=== PATIENT | female | born 1975 | race African-American/Black ===

== ENCOUNTER 2017-06-11 08:13 | Emergency (ER) | payer SELFPAY ==
--- NOTE | 2017-06-11 08:28 | ER Document Report ---
ED ENT - General Chief Complaint: Ear Pain Stated Complaint: RIGHT EAR PAIN Time Seen by Provider: 06/11/17 08:27 Mode of Arrival: Ambulatory Information source: Patient Notes: Patient is a 41-year-old female who presents to the ER today for 3 days of right ear pain. Patient states that she feels like she cannot hear very well out of it and that it feels "clogged." She denies any drainage from the ear, fever, chills, runny nose, sore throat, cough or other symptoms. TRAVEL OUTSIDE OF THE [place] IN LAST 30 DAYS: No - Related Data Allergies/Adverse Reactions: No Known Allergies Allergy (Verified 09/05/16 07:56) Past Medical History - General Information source: Patient - Social History Smoking Status: Unknown if Ever Smoked Family History: Reviewed & Not Pertinent Renal/ Medical History: Denies: Hx Peritoneal Dialysis Past Surgical History: Reports: Hx Tubal Ligation - Immunizations Immunizations up to date: Yes Hx Diphtheria, Pertussis, Tetanus Vaccination: Yes Review of Systems - Review of Systems Constitutional: No symptoms reported EENT: See HPI Cardiovascular: No symptoms reported Respiratory: No symptoms reported Gastrointestinal: No symptoms reported Genitourinary: No symptoms reported Female Genitourinary: No symptoms reported Musculoskeletal: No symptoms reported Skin: No symptoms reported Hematologic/Lymphatic: No symptoms reported Neurological/Psychological: No symptoms reported Physical Exam - Vital signs Vitals: Temp Pulse Resp BP Pulse Ox 97.9 F 70 16 135/70 H 99 06/11/17 08:14 06/11/17 08:14 06/11/17 08:14 06/11/17 08:14 06/11/17 08:14 - Notes Notes: PHYSICAL EXAMINATION: GENERAL: Well-appearing and in no acute distress. HEAD: Atraumatic, normocephalic. EYES: Pupils equal round and reactive to light, extraocular movements intact, sclera anicteric, conjunctiva are normal. ENT: Bilateral ear canals filled with wax, cannot visualize TMs, nares patent, oropharynx clear without exudates. Moist mucous membranes. NECK: Normal range of motion, supple without lymphadenopathy LUNGS: CTAB and equal. No wheezes rales or rhonchi. HEART: Regular rate and rhythm without murmurs EXTREMITIES: Normal range of motion, no pitting edema. No cyanosis. NEUROLOGICAL: Cranial nerves grossly intact. Normal sensory/motor exams. PSYCH: Normal mood, normal affect. SKIN: Warm, Dry, normal turgor, no rashes or lesions noted Course - Re-evaluation Re-evalutation: 06/11/17 10:25 Bilateral ears were irrigated, removing wax successfully. Patient still complains of pain to the right ear. After irrigation, I did visualize the ear canals again and the right ear canal is very edematous, cannot visualize TMs still. I will treat her with Ciprodex which was given to her here in the emergency department will be enough for the full course of treatment. - Vital Signs Vital signs: Temp Pulse Resp BP Pulse Ox 97.9 F 70 16 135/70 H 99 06/11/17 08:14 06/11/17 08:14 06/11/17 08:14 06/11/17 08:14 06/11/17 08:14 Discharge - Discharge Clinical Impression: Wax in ear Otitis externa of right ear Qualifiers: Otitis externa type: unspecified type Chronicity: acute Qualified Code(s): H60.501 - Unspecified acute noninfective otitis externa, right ear Condition: Stable Disposition: HOME, SELF-CARE Additional Instructions: Return immediately for any new or worsening symptoms. Follow up with primary care provider, call tomorrow to make followup appointment. Referrals: NASIMA BARRAGAN, [Primary Care Provider] - Follow up as needed
[2017-06-11] MEDS ORDERED: CIPROFLOXACIN HCL/DEXAMETH OTIC DROP 7.5 ML AS ONE (10:05)
[2017-06-11 10:51] VITALS: BP 110/50
== END 2017-06-11 10:30 | disposition home or self-care (01) ==
LOC: ER 08:13
DX: H60.501 Unspecified acute noninfective otitis externa, right ear (principal); H61.23 Impacted cerumen, bilateral; H92.01 Otalgia, right ear; Z98.51 Tubal ligation status
CPT/HCPCS: 99282; J3490

== ENCOUNTER 2017-06-12 10:55 | Emergency (ER) | payer SELFPAY ==
[2017-06-12] MEDS ORDERED: DOCUSATE SODIUM 100 MG CAPSULE BTH_EAR ONE (11:17)
--- NOTE | 2017-06-12 11:25 | ER Document Report ---
HPI - HPI Pain Level: 5 Notes: Patient is a 41-year-old female presents the ED complaining of bilateral ear pain, clogged ears, decreased hearing, and with wax buildup 4 days patient states that she was here yesterday and had received treatment but did not get any relief. They did send her home with some Ciprodex drops for the right ear canal which she has been using without any relief. Denies any recent illness. No other concerns or complaints. Denies any headache, dizziness, tinnitus, fever, URI, sore throat, cough, shortness breath, wheeze, chest pain, palpitations, abdominal pain, nausea/vomiting, dysuria, rash. Denies drug allergies. Denies any daily medications. Denies any significant past medical history. Denies any smoking or illicit drug use. - ROS Notes: REVIEW OF SYSTEMS: CONSTITUTIONAL : Denies fever, chills, or sweats. Denies recent illness. EENT: see hpi CARDIOVASCULAR: Denies chest pain. Denies palpitations or racing or irregular heart beat. Denies ankle edema. RESPIRATORY: Denies cough, cold, or chest congestion. Denies shortness of breath, difficulty breathing, or wheezing. GASTROINTESTINAL: Denies abdominal pain or distention. Denies nausea, vomiting , or diarrhea. Denies blood in vomitus, stools, or per rectum. Denies black, tarry stools. Denies constipation. GENITOURINARY: Denies difficulty urinating, painful urination, burning, frequency, blood in urine, or discharge. MUSCULOSKELETAL: Denies back or neck pain or stiffness. Denies joint pain or swelling. SKIN: Denies rash, lesions or sores. NEUROLOGICAL: Denies confusion or altered mental status. Denies passing out or loss of consciousness. Denies dizziness or lightheadedness. Denies headache. Denies weakness or paralysis or loss of use of either side. Denies problems with gait or speech. Denies sensory loss, numbness, or tingling. Denies seizures. ALL OTHER SYSTEMS REVIEWED AND NEGATIVE. Dictation was performed using [employer] voice recognition software - REPRODUCTIVE Reproductive: DENIES: : - DERM Skin Color: Normal Past Medical History - Social History Smoking Status: Never Smoker Family History: Reviewed & Not Pertinent Patient has suicidal ideation: No Patient has homicidal ideation: No Renal/ Medical History: Denies: Hx Peritoneal Dialysis Past Surgical History: Reports: Hx Tubal Ligation - Immunizations Immunizations up to date: Yes Hx Diphtheria, Pertussis, Tetanus Vaccination: Yes Vertical Provider Document - CONSTITUTIONAL Agree With Documented VS: Yes Notes: PHYSICAL EXAMINATION: GENERAL: Well-appearing, well-nourished and in no acute distress. HEAD: Atraumatic, normocephalic. EYES: Pupils equal round and reactive to light, extraocular movements intact, sclera anicteric, conjunctiva are normal. ENT: Cerumen obstruction b/l EAC. + mild swelling, tenderness to rt EAC. TM's not visualized. Nares patent and without discharge. oropharynx clear without exudates. No tonsilar hypertrophy or erythema. Moist mucous membranes. No sinus tenderness. NECK: Normal range of motion, supple without lymphadenopathy. LUNGS: Breath sounds clear to auscultation bilaterally and equal. No wheezes rales or rhonchi. HEART: Regular rate and rhythm without murmurs, rubs, gallops. PSYCH: Normal mood, normal affect. SKIN: Warm, Dry, normal turgor, no rashes or lesions noted. - INFECTION CONTROL TRAVEL OUTSIDE OF THE [place] IN LAST 30 DAYS: No - RESPIRATORY O2 Sat by Pulse Oximetry: 100 Course - Re-evaluation Re-evalutation: 06/12/17 12:32 Patient is an afebrile, well-hydrated, 41-year-old female presents the ED with cerumen impaction bilaterally and right acute otitis externa. Vitals are stable. PE otherwise unremarkable. Colace was placed in the ears bilaterally, curette was utilized along with irrigation but was unable to remove the cerumen successfully. Pt was in distress and pain. We were able to get some cerumen out, but an abundant amount remained that was solid. Spoke with Dr. Rowe ( ENT) who will see the patient this afternoon in his office. Patient directed to continue the Ciprodex drops that she was given yesterday to her right ear. Avoid Q-tips and other items in the ear. Conservative measures otherwise for symptoms. Recheck with your PCM in 2-3 days otherwise. Return to the ED with any worsening/concerning symptoms otherwise as reviewed. Patient is in agreement. Meclizine given PO for dizziness during procedure. - Vital Signs Vital signs: Temp Pulse Resp BP Pulse Ox 98.2 F 79 16 134/82 H 100 06/12/17 11:03 06/12/17 11:03 06/12/17 11:03 06/12/17 11:03 06/12/17 11:03 Discharge - Discharge Clinical Impression: Impacted cerumen of both ears Acute otitis externa of right ear Qualifiers: Otitis externa type: unspecified type Qualified Code(s): H60.501 - Unspecified acute noninfective otitis externa, right ear Condition: Stable Disposition: HOME, SELF-CARE Instructions: Otitis Externa ([facility]), Use of Ear Drops ([facility]), Acetaminophen Additional Instructions: Maintain adequate fluid intake Keep ears clean Avoid q-tips and other items in ear tylenol/ibuprofen as needed Continue ear drops as directed F/u: with your PCM in 2-3 days for a recheck Consider consult with ENT Return to the ED with any fever, worsening pain, chest pain, shortness of breath , trouble swallowing/breathing, abdominal pain, n/v/d, or worsening/concerning symptoms otherwise. Go to ENT office today for evaluation Dr. Rowe [address] [place] [address] Forms: Elevated Blood Pressure Referrals: ENT [Provider Group] - Follow up as needed
[2017-06-12] MEDS ORDERED: MECLIZINE HCL 25 MG TABLET PO ONE (12:27)
[2017-06-12 13:00] VITALS: BP 139/82
== END 2017-06-12 13:00 | disposition home or self-care (01) ==
LOC: ER 10:55
DX: H61.23 Impacted cerumen, bilateral (principal); H60.501 Unspecified acute noninfective otitis externa, right ear; R42 Dizziness and giddiness
CPT/HCPCS: 99283

== ENCOUNTER 2017-06-14 08:51 | Day surgery (SDC) | payer SELFPAY ==
[2017-06-14] MEDS ORDERED: MIDAZOLAM 2 MG/2 ML INJ ONE (10:27)
--- NOTE | 2017-06-14 11:24 | [facility] OPERATIVE REPORT E ---
[facility] Operative Report NAME: CA LI AGE: 41Y DATE OF SURGERY: ROOM: PREOPERATIVE DIAGNOSIS: BILATERAL WAX IMPACTIONS. POSTOPERATIVE DIAGNOSIS: BILATERAL WAX IMPACTIONS. OPERATION: Removal of wax impactions under general anesthesia. SURGEON: CHON BARROS M.D. ANESTHESIA: General. INDICATIONS: A 41-year-old female with bilateral wax impactions. These could not be removed in the Emergency Room or in the office due to severe ear pain. She is taken to the operating room for general anesthetic and removal. Risks and benefits discussed and accepted. PROCEDURE: Under general anesthesia via mask, the patient was placed in the supine position. A timeout procedure was performed to verify the procedure. A wax impaction removal was performed. The operating microscope was brought in place and the left ear examined under the microscope. There was a large wax impaction. This was removed with a right angle pick and a curette. The tympanic membrane is clear. A similar procedure and removal of wax was performed from the right ear. Again, the tympanic membrane was clear following removal of the large wax impactions. She tolerated the procedure well and was taken to the recovery room area in satisfactory condition. DICTATING PHYSICIAN: CHON BARROS M.D. [id number] PHY#: [id number] ID: [id number] JOB#: [id number] ACCT: [id number] cc:CHON BARROS M.D. >
== END 2017-06-14 11:40 | disposition home or self-care (01) ==
LOC: SC 08:51
PROVIDERS: ATTEND Otolaryngology
PROC: 09C37ZZ Extirpation of Matter from Right External Auditory Canal, Via Natural or Artificial Opening (ICD-10-PCS; 2017-06-14)
PROC: 09C47ZZ Extirpation of Matter from Left External Auditory Canal, Via Natural or Artificial Opening (ICD-10-PCS; principal; 2017-06-14 10:00)
DX: H61.23 Impacted cerumen, bilateral (principal); H90.0 Conductive hearing loss, bilateral
CPT/HCPCS: 69210; J2250; 124

== ENCOUNTER 2017-10-15 13:17 | Emergency (ER) | payer SELFPAY ==
[2017-10-15 13:35] VITALS: BP 118/75
--- NOTE | 2017-10-15 14:12 | ER Document Report ---
HPI - HPI Patient complains to provider of: urinary frequency Onset: Other - 2 days Onset/Duration: Gradual Quality of pain: No pain Pain Level: Denies Context: Patient presents complaining of urinary frequency for the past 2 days. Patient denies any dysuria at this time. Patient denies any abdominal pain or flank pain. Patient has a history of frequent UTIs and suspects that one is starting. Associated Symptoms: Other - urinary frequency. denies: Fever, Nausea, Vomiting Exacerbated by: Denies Relieved by: Denies Similar symptoms previously: Yes Recently seen / treated by doctor: No - ROS ROS below otherwise negative: Yes Systems Reviewed and Negative: Yes All other systems reviewed and negative - CONSTITUTIONAL Constitutional: DENIES: Fever, Chills - GASTROINTESTINAL Gastrointestinal: DENIES: Abdominal Pain, Nausea - URINARY Urinary: REPORTS: Frequency. DENIES: Dysuria - REPRODUCTIVE Reproductive: DENIES: : - MUSCULOSKELETAL Musculoskeletal: DENIES: Back Pain - DERM Skin Color: Normal Skin Problems: None Past Medical History - General Information source: Patient - Social History Smoking Status: Never Smoker Frequency of alcohol use: None Drug Abuse: None Family History: Reviewed & Not Pertinent - Medical History Medical History: Negative - Past Medical History Cardiac Medical History: Denies: Hx Heart Attack, Hx Hypertension Pulmonary Medical History: Denies: Hx Asthma Neurological Medical History: Denies: Hx Cerebrovascular Accident, Hx Seizures Renal/ Medical History: Denies: Hx Peritoneal Dialysis GI Medical History: Denies: Hx Hepatitis, Hx Hiatal Hernia, Hx Ulcer Infectious Medical History: Denies: Hx Hepatitis Past Surgical History: Reports: Hx Tubal Ligation. Denies: Hx Mastectomy, Hx Open Heart Surgery, Hx Pacemaker - Immunizations Immunizations up to date: Yes Hx Diphtheria, Pertussis, Tetanus Vaccination: Yes Vertical Provider Document - CONSTITUTIONAL Agree With Documented VS: Yes Exam Limitations: No Limitations General Appearance: WD/WN, No Apparent Distress - INFECTION CONTROL TRAVEL OUTSIDE OF THE [place] IN LAST 30 DAYS: No - HEENT HEENT: Atraumatic, Normocephalic - NECK Neck: Normal Inspection - RESPIRATORY Respiratory: Breath Sounds Normal, No Respiratory Distress O2 Sat by Pulse Oximetry: 100 - CARDIOVASCULAR Cardiovascular: Regular Rate, Regular Rhythm - BACK Back: Normal Inspection. negative: CVA Tenderness-Right, CVA Tenderness-Left - MUSCULOSKELETAL/EXTREMETIES Musculoskeletal/Extremeties: MAEW - NEURO Level of Consciousness: Awake, Alert, Appropriate Motor/Sensory: No Motor Deficit - DERM Integumentary: Warm, Dry, No Rash Course - Vital Signs Vital signs: Temp Pulse Resp BP Pulse Ox 98.0 F 67 16 118/75 100 10/15/17 13:34 10/15/17 13:34 10/15/17 13:34 10/15/17 13:34 10/15/17 13:34 - Laboratory Laboratory results interpreted by me: 10/15/17 14:35 Labs- Entire Visit 10/15/17 13:54 Urine Color YELLOW Urine Appearance SLIGHTLY-CLOUDY Urine pH 6.0 Ur Specific [place] 1.018 Urine Protein 30 H Urine Glucose (UA) NEGATIVE Urine Ketones NEGATIVE Urine Blood LARGE H Urine Nitrite NEGATIVE Urine Bilirubin NEGATIVE Urine Urobilinogen NEGATIVE Ur Leukocyte Esterase NEGATIVE Urine WBC (Auto) 1 Urine RBC (Auto) 35 Urine Bacteria (Auto) TRACE Squamous Epi Cells Auto 6 Urine Mucus (Auto) RARE Urine Ascorbic Acid NEGATIVE Discharge - Discharge Clinical Impression: Urinary symptom or sign Hematuria Qualifiers: Hematuria type: unspecified type Qualified Code(s): R31.9 - Hematuria, unspecified Condition: Stable Disposition: HOME, SELF-CARE Instructions: Cephalexin ([facility]), Urinary Tract Infection ([facility]) Additional Instructions: Return immediately for any new or worsening symptoms Followup with your primary care provider, call tomorrow to make a followup appointment Urine culture is pending, we will call if you need any different treatment Prescriptions: Cephalexin Monohydrate [Keflex 500 mg Capsule] 500 mg PO Q6H 5 Days capsule Phenazopyridine HCl [Pyridium 200 mg Tablet] 200 mg PO TID #15 tablet Referrals: NASIMA BARRAGAN DO [Primary Care Provider] - Follow up as needed
[2017-10-15 14:27] LABS: APPEARANCE,URINE SLIGHTLY-CLOUDY; BILIRUBIN,URINE NEGATIVE (NEGATIVE); GLUCOSE, URINE NEGATIVE (NEGATIVE); KETONES,URINE NEGATIVE (NEGATIVE); LEUKOCYTE ESTERASE,URINE NEGATIVE (NEGATIVE); NITRITE,URINE NEGATIVE (NEGATIVE); PROTEIN,URINE 30 mg/dL (NEGATIVE); URINE SPECIFIC GRAVITY 1.018; UROBILINOGEN,URINE NEGATIVE mg/dL (<2.0)
[2017-10-15] MEDS ORDERED: PHENAZOPYRIDINE HCL 100 MG TABLET PO ONE (14:35)
[2017-10-15] MEDS ORDERED: CEPHALEXIN 500 MG CAPSULE PO ONE (14:35)
== END 2017-10-15 15:20 | disposition home or self-care (01) ==
LOC: ER 13:17
DX: R35.0 Frequency of micturition (principal); R31.9 Hematuria, unspecified; Z87.440 Personal history of urinary (tract) infections
CPT/HCPCS: 99283; 87086; 81001; J3490

== ENCOUNTER 2017-12-31 09:32 | Emergency (ER) | payer OTHER ==
--- NOTE | 2017-12-31 10:42 | ER Document Report ---
HPI - HPI Patient complains to provider of: Foreign body in throat Onset: Other - 830 Onset/Duration: Persistent Quality of pain: Achy Pain Level: 3 Context: Patient states that she was drinking a smoothie out of a normal-sized straw this morning at 830 and felt something sharp in her throat. Patient states that she felt like the object went down her throat but since then she has had continued pain which makes her worried that something may be stuck in her throat. Patient has drank water, juice and has eaten raisins as well as banana in attempt to dislodge a possible foreign body. Patient denies any difficulty breathing, cough or chest pain. Patient denies any vomiting. Associated Symptoms: Sore throat. denies: Chest pain, Nonproductive cough, Productive cough, Vomiting Exacerbated by: Denies Relieved by: Denies Similar symptoms previously: No Recently seen / treated by doctor: No - ROS ROS below otherwise negative: Yes Systems Reviewed and Negative: Yes All other systems reviewed and negative - EENT EENT: REPORTS: Sore Throat - CARDIOVASCULAR Cardiovascular: DENIES: Chest pain - RESPIRATORY Respiratory: DENIES: Trouble Breathing, Coughing - GASTROINTESTINAL Gastrointestinal: DENIES: Nausea, Patient vomiting - REPRODUCTIVE Reproductive: DENIES: : - DERM Skin Color: Normal Skin Problems: None Past Medical History - General Information source: Patient - Social History Smoking Status: Never Smoker Frequency of alcohol use: None Drug Abuse: None Occupation: forest and conservation worker Family History: Reviewed & Not Pertinent Patient has suicidal ideation: No Patient has homicidal ideation: No - Medical History Medical History: Negative - Past Medical History Cardiac Medical History: Denies: Hx Heart Attack, Hx Hypertension Pulmonary Medical History: Denies: Hx Asthma Neurological Medical History: Denies: Hx Cerebrovascular Accident, Hx Seizures Renal/ Medical History: Denies: Hx Peritoneal Dialysis GI Medical History: Denies: Hx Hepatitis, Hx Hiatal Hernia, Hx Ulcer Infectious Medical History: Denies: Hx Hepatitis Past Surgical History: Reports: Hx Tubal Ligation. Denies: Hx Mastectomy, Hx Open Heart Surgery, Hx Pacemaker - Immunizations Immunizations up to date: Yes Hx Diphtheria, Pertussis, Tetanus Vaccination: Yes Vertical Provider Document - CONSTITUTIONAL Agree With Documented VS: Yes Exam Limitations: No Limitations General Appearance: WD/WN, No Apparent Distress Notes: Patient managing oral secretions - INFECTION CONTROL TRAVEL OUTSIDE OF THE [place] IN LAST 30 DAYS: No - HEENT HEENT: Atraumatic, Normal ENT Exam, Normocephalic - NECK Neck: Normal Inspection, Supple. negative: Lymphadenopathy-Left, Lymphadenopathy-Right - RESPIRATORY Respiratory: Breath Sounds Normal, No Respiratory Distress, Chest Non-Tender O2 Sat by Pulse Oximetry: 95 - CARDIOVASCULAR Cardiovascular: Regular Rate, Regular Rhythm, No Murmur - MUSCULOSKELETAL/EXTREMETIES Musculoskeletal/Extremeties: MAEW - NEURO Level of Consciousness: Awake, Alert Motor/Sensory: No Motor Deficit - DERM Integumentary: Warm, Dry Course - Re-evaluation Re-evalutation: 12/31/17 12:[address] frances regarding patient presentation, does not recommend any additional diagnostic evaluation at this time given patient's presentation. Patient continues very talkative, manages her oral secretions without difficulty. Patient reports some improvement of her pain symptoms after the oral lidocaine. Patient without any vomiting or cough. No concern for aspiration pneumonia or foreign body aspiration at this time. Good return precautions provided to patient. Patient encouraged to return for any new or worsening symptoms. Suspect patient has foreign body sensation to throat after swallowing something in her frozen smoothie. - Vital Signs Vital signs: Temp Pulse Resp BP Pulse Ox 98.7 F 99 20 129/76 H 95 12/31/17 09:37 12/31/17 09:37 12/31/17 09:37 12/31/17 09:37 12/31/17 09:37 - Diagnostic Test Radiology reviewed: Reports reviewed Discharge - Discharge Clinical Impression: Throat discomfort, Foreign body sensation in throat Condition: Stable Disposition: HOME, SELF-CARE Instructions: Acetaminophen, Use of [id number] Ibuprofen ([facility]) Additional Instructions: Return immediately for any new or worsening symptoms Followup with your primary care provider, call tomorrow to make a followup appointment Eat a soft diet Return for any cough, fever, difficulty swallowing, vomiting, or any concerning symptoms. Follow-up with an ear nose and throat doctor for recheck Forms: Return to Work Referrals: NASIMA BARRAGAN DO [NO LOCAL MD] - Follow up tomorrow [facility] [Provider Group] - Follow up as needed
--- NOTE | 2017-12-31 11:28 | RADIOLOGY REPORT (SQ) ---
EXAM DESCRIPTION: SOFT TISSUE NECK COMPLETED DATE/TIME: 12/31/2017 11:00 am REASON FOR STUDY: ?FB after drinking smoothie COMPARISON: None. NUMBER OF VIEWS: Two views. TECHNIQUE: AP and lateral radiographic image of the soft tissues of the neck. LIMITATIONS: None. FINDINGS: EPIGLOTTIS: Normal. Contour normal. Aryepiglottic folds normal. PREVERTEBRAL SOFT TISSUES: Normal. No soft tissue swelling. SUBGLOTTIC AREA: Normal. No narrowing. RETROPHARYNGEAL SPACE: Normal. No soft tissue masses. BONES: Advanced degenerative disc changes with disc space loss of height and anterior osteophyte form ation at C3-4, C4-5, and C5-6. LUNG APICES: Normal. OTHER: No radiopaque foreign body. No other significant finding. IMPRESSION: NEGATIVE STUDY OF THE SOFT TISSUES OF THE NECK. TECHNICAL DOCUMENTATION: JOB ID: [id number] [employer]- All Rights Reserved
[2017-12-31] MEDS ORDERED: LIDOCAINE 2% VISCOUS SOLN 20 ML UDCUP PO ONE (11:30)
[2017-12-31 12:20] VITALS: BP 120/70
== END 2017-12-31 12:19 | disposition home or self-care (01) ==
LOC: ER 09:32
DX: R09.89 Other specified symptoms and signs involving the circulatory and respiratory systems (principal); J02.9 Acute pharyngitis, unspecified
CPT/HCPCS: 99283; 70360; J3490

== ENCOUNTER 2018-01-03 09:34 | Emergency (ER) | payer OTHER ==
[2018-01-03 09:41] VITALS: BP 118/65
--- NOTE | 2018-01-03 10:35 | ER Document Report ---
ED General - General Chief Complaint: Cough Stated Complaint: COUGH Time Seen by Provider: 01/03/18 09:53 Notes: States that she has a runny nose and some congestion. No fever. No chills. No shortness of breath. No chest pain. No nausea. No vomiting. Thinks that she could have a cold and does not know if she needs antibiotics or not. Denies any other major symptoms at this time. Of note patient does state that she was here a few days ago. Had a foreign body sensation in her throat after drinking something through a straw. States that she would like to make a complaint that nothing made her better but when she went home she ate some biscuits and a coke and her pain went all away and is frustrated that she was not offered treatment similar to biscuits and coke. TRAVEL OUTSIDE OF THE [place] IN LAST 30 DAYS: No - HPI Onset: Yesterday Onset/Duration: Gradual Quality of pain: No pain Severity: None Pain Level: Denies Associated symptoms: Rhinnorhea, Sinus pain/drainage. denies: Body/muscle aches , Chest pain, Chills, Nonproductive cough, Productive cough, Diarrhea, Drooling , Earache, Fever, Headache, Hoarseness, Hurts to breath, Leg swelling, Nausea, Vomiting, Shortness of breath, Sore throat, Weakness - Related Data Allergies/Adverse Reactions: No Known Allergies Allergy (Verified 12/31/17 09:34) Past Medical History - General Information source: Patient - Social History Smoking Status: Unknown if Ever Smoked Cigarette use (# per day): No Frequency of alcohol use: None Drug Abuse: None Lives with: Family Family History: Reviewed & Not Pertinent Patient has suicidal ideation: No Patient has homicidal ideation: No - Past Medical History Cardiac Medical History: Denies: Hx Heart Attack, Hx Hypertension Pulmonary Medical History: Denies: Hx Asthma Neurological Medical History: Denies: Hx Cerebrovascular Accident, Hx Seizures Renal/ Medical History: Denies: Hx Peritoneal Dialysis GI Medical History: Denies: Hx Hepatitis, Hx Hiatal Hernia, Hx Ulcer Infectious Medical History: Denies: Hx Hepatitis Past Surgical History: Reports: Hx Tubal Ligation. Denies: Hx Mastectomy, Hx Open Heart Surgery, Hx Pacemaker - Immunizations Immunizations up to date: Yes Hx Diphtheria, Pertussis, Tetanus Vaccination: Yes Review of Systems - Review of Systems Constitutional: denies: Fever, Malaise, Weakness EENT: Nose congestion, Nose discharge. denies: Blurred vision, Ear pain, Ear discharge, Nose pain, Throat swelling, Mouth swelling, Dental problem Cardiovascular: denies: Chest pain, Palpitations, Heart racing Respiratory: denies: Cough, Hurts to breathe, Short of breath, Wheezing Gastrointestinal: denies: Abdomen distended, Abdominal pain, Diarrhea, Nausea, Vomiting Musculoskeletal: denies: Back pain, Joint pain, Joint swelling Skin: denies: Dryness, Lesions, Rash Physical Exam - Vital signs Vitals: Temp Pulse Resp BP Pulse Ox 98.7 F 87 21 H 118/65 98 01/03/18 09:39 01/03/18 09:39 01/03/18 09:39 01/03/18 09:39 01/03/18 09:39 Interpretation: Normal - General General appearance: Appears well, Alert - HEENT Head: Normocephalic Eyes: Normal Conjunctiva: Normal Cornea: Normal Extraocular movements intact: Yes Sinus: Normal Nasal: Normal Mouth/Lips: Normal Mucous membranes: Normal - Respiratory Respiratory status: No respiratory distress Chest status: Nontender Breath sounds: Normal Chest palpation: Normal - Cardiovascular Rhythm: Regular Heart sounds: Normal auscultation Murmur: No - Abdominal Inspection: Normal Distension: No distension Bowel sounds: Normal Tenderness: Nontender - Extremities General upper extremity: Normal inspection, Nontender. No: Edema General lower extremity: Normal inspection, Nontender. No: Edema Course - Re-evaluation Re-evalutation: 01/03/18 11:40 Well-appearing female in no acute distress likely has a viral URI also known as the common cold. This was described to the patient. Advised her to use some [id number] medications as needed. Did make recommendations on a couple of brands such as NyQuil, Afrin, Sudafed. Will DC at this time. - Vital Signs Vital signs: Temp Pulse Resp BP Pulse Ox 98.7 F 87 21 H 118/65 98 01/03/18 09:39 01/03/18 09:39 01/03/18 09:39 01/03/18 09:39 01/03/18 09:39 Discharge - Discharge Clinical Impression: Acute viral syndrome Condition: Good Disposition: HOME, SELF-CARE Instructions: Acetaminophen, Viral Syndrome ([facility]) Additional Instructions: You may take over the counter medications as needed for your cold
== END 2018-01-03 10:40 | disposition home or self-care (01) ==
LOC: ER 09:34
DX: R05 Cough (principal); B34.9 Viral infection, unspecified; Z98.51 Tubal ligation status
CPT/HCPCS: 99283